=== PATIENT | female | born 1995 | race Two or more races ===

== ENCOUNTER 2018-03-09 19:51 | Emergency (ER) | payer SELFPAY ==
[~2018-03-09] VITALS: Ht 154.9 cm; Wt 63.5 kg
[2018-03-09 19:55] VITALS: BP 121/82
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
[2018-03-09] MEDS ORDERED: Acetaminophen 500mg (ES) tab ORAL ONE (20:00)
[2018-03-09] MEDS ORDERED: ACETAMINOPHEN500 M3 ORAL (20:46)
[2018-03-09] MEDS ORDERED: IBUPROFEN600 MG ORAL (20:46)
[2018-03-09 20:56] VITALS: BP 121/82
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
--- NOTE | 2018-03-10 10:19 | Diagnostic Imaging Report ---
Indication: Reason For Exam: PAIN Technique: 2 views of the left tibia and fibula Comparison: none Findings: No acute fractures. No dislocations. No radiopaque foreign body. No evidence of soft tissue disruption Impression: Negative
== END 2018-03-09 20:57 | disposition home or self-care (01) ==
LOC: EDBD 19:51 → EMR 20:19
DX: S80.12XA Contusion of left lower leg, initial encounter (principal); S80.11XA Contusion of right lower leg, initial encounter; V43.52XA Car driver injured in collision with other type car in traffic accident, initial encounter; Y92.410 Unspecified street and highway as the place of occurrence of the external cause
CPT/HCPCS: 99284